=== PATIENT | male | born 1990 | race Caucasian/White ===

== ENCOUNTER 2017-05-26 18:13 | Inpatient (IN) | payer OTHER ==
[~2017-05-26] VITALS: Ht 167.6 cm; Wt 65.8 kg
--- NOTE | 2017-05-26 18:53 | NUR ---
PT TO ED ROOM 01. DIFFUSED R LOWER ABDOMINAL PAIN X 3 DAYS WITH NAUSEA, DENIES VOMITING. SIDE RAILS UP. HOB ELEVATED. SEEN AND EVALUATED BY ED PROVIDER.
[2017-05-26 18:56] LABS: APPEARANCE,URINE Clear (CLEAR); BILIRUBIN,URINE Negative (NEGATIVE); BLOOD, URINE Negative Ery/uL (NEGATIVE); COLOR,URINE Yellow (YELLOW); KETONES,URINE Negative (NEGATIVE); LEUKOCYTE ESTERASE ,URINE Negative (NEGATIVE); NITRITE, URINE Negative (NEGATIVE); PH,URINE 6.5 (5.0-8.0); PROTEIN,URINE Negative (NEGATIVE); UGLUCOSE Negative (NEGATIVE); UROBILINOGEN,URINE 0.2 EU/dL (0.2)
[2017-05-26 19:08] LABS: BASOPHILS % (AUTO) 0.5 % (0.0-2.0); EOSINOPHILS # (AUTO) 0.3 /CMM (0.0-0.7); EOSINOPHILS % (AUTO) 3.7 % (0.0-6.0); HEMATOCRIT 45 % (39-51); HEMOGLOBIN 15.1 g/dL (13.5-17.5); LYMPHOCYTES # (AUTO) 3.8 /CMM (0.8-4.8); LYMPHOCYTES % (AUTO) 42.3 % (20.0-44.0); MEAN CORPUSCULAR HEMOGLOBIN 31 PG (26.0-33.0); MEAN CORPUSCULAR HGB CONC 34 g/dl (31.0-36.0); MEAN CORPUSCULAR VOLUME 91 fL (80-96); MONOCYTES # (AUTO) 0.7 /CMM (0.1-1.30); MONOCYTES % (AUTO) 7.5 % (2.0-12.0); NEUTROPHILS # (AUTO) 4.1 /CMM (1.8-8.9); PLATELET COUNT (AUTO) 250 /CMM (150-450); RDW COEFFICIENT OF VARIATION 12.9 (11.5-15.0); RED BLOOD CELL COUNT(AUTO) 4.93 MIL/uL (4.5-6.0); WHITE BLOOD COUNT (AUTO) 8.9 K/uL (4.3-11.0)
[2017-05-26 19:10] LABS: INR 0.98 (0.87-1.13); PROTHROMBIN TIME 10.2 SECS (9.5-12.7)
[2017-05-26 19:12] LABS: ALBUMIN 4.6 g/dL (3.4-5.0); BILIRUBIN,DIRECT 0.1 mg/dL (0.0-0.2); BILIRUBIN,TOTAL 0.3 mg/dL (0.2-1.0); CALCIUM, SERUM 9.2 mg/dL (8.5-10.1); POTASSIUM 3.8 mmol/L (3.5-5.1); TOTAL PROTEIN, SERUM 8.4 g/dL (6.4-8.2)
[2017-05-26] MEDS ORDERED: IOHEXOL-300 100 ML VIAL IV ONE (19:56)
[2017-05-26] MEDS ORDERED: DIATR MEGLU/DIATRIZOATE SODIUM 30 ML BOTTLE (GASTROGRAPHIN) ONE (19:56)
[2017-05-26] MEDS ORDERED: IV NS 0.9% 250 ML IV ONE (19:56)
[2017-05-26 20:00] VITALS: BP 110/54
--- NOTE | 2017-05-26 20:10 | NUR ---
HL PLACED LAC ON BEHALF OF PRIMARY NURSE HIMANSHU. PLACED ON MONITOR.
--- NOTE | 2017-05-26 21:22 | NUR ---
PANEL PAGED ORDERED.
[2017-05-26] MEDS ORDERED: PIPERACILLIN /TAZOBACTAM 3.375 G in IV D5W 50 ML IV ONE (21:30)
[2017-05-26] MEDS ORDERED: PIPERACILLIN /TAZOBACTAM 3.375 G VIAL IV ONE (21:36)
[2017-05-26] MEDS ORDERED: ZOLPIDEM TARTRATE 5 MG TABLET PO PRN (22:30)
[2017-05-26] MEDS ORDERED: MAG HYDROX/AL HYDROX/SIMETH 30 ML UDC PO PRN (22:30)
[2017-05-26] MEDS ORDERED: MAGNESIUM HYDROXIDE 30 ML UDC PO PRN (22:30)
[2017-05-26] MEDS ORDERED: MORPHINE SULFATE INJ 2 MG/ML DISP.SYRIN IV PRN (22:30)
[2017-05-26] MEDS ORDERED: Z GUARD REMEDY 2 OZ OINT TP PRN (22:30)
[2017-05-26] MEDS ORDERED: ACETAMINOPHEN 325 MG TABLET PO PRN (22:30)
[2017-05-26] MEDS ORDERED: ONDANSETRON HCL/PF 4 MG/2 ML VIAL IVP PRN (22:30)
[2017-05-26 22:35] VITALS: BP 110/54
[2017-05-26] MEDS: IV NS 0.9% 1,000 ML IV PRN (22:58)
[2017-05-27] VITALS (13 sets, daily range): BP systolic 90–115; BP diastolic 50–72
[2017-05-27] MEDS ORDERED: MORPHINE SULFATE INJ 2 MG/ML DISP.SYRIN ONE (00:42)
--- NOTE | 2017-05-27 00:45 | NUR ---
MORPHINE GIVEN FOR C/O SEVERE ABD. PAIN. WILL CONT TO MONITOR
--- NOTE | 2017-05-27 04:00 | NUR ---
PT WAS SEEN AND EXAMINED BY DR. HIMANSHU MEDINA . PER MD PT WILL HAVE SX TOMORROW FOR APPENDECTOMY AND HERNIA REMOVAL. CONSENT TO BE OBTAINED FROM THE PT.
--- NOTE | 2017-05-27 04:41 | NUR ---
RECEIVED A CALL FROM DR. MEDINA W/ A NEW ORDER FOR ZOSYN [id number]. NEW ORDER NOTED.
[2017-05-27] MEDS ORDERED: PIPERACILLIN /TAZOBACTAM 3.375 G VIAL IV ONE (04:44)
[2017-05-27] MEDS: PIPERACILLIN /TAZOBACTAM 3.375 G in IV D5W 50 ML IV SCH ×5 (04:54→23:45)
--- NOTE | 2017-05-27 05:10 | NUR ---
0600 O'CLOCK DOSE FOR THE ZOSYN WAS MARKED NON ADMINISTERED DUE TO MED GIVEN AT 0500.
--- NOTE | 2017-05-27 06:26 | NUR ---
RN NOTE, PT IN BED . BREATHING EVENLY. NO SOB. NAD. SKIN WARM AND DRY. PAIN TOLERATED WELL. NO N/V. NPO FOR SX TODAY. ON ONGOING IVF HYDRATION. NEEDS ATTENDED . . BED LOW LOCKED. CALL LIGHT WITHIN REACH. WILL CONT TO MONITOR AND WILL ENDORSE TO AM SHIFT FOR GRAHAM.
[2017-05-27 07:16] LABS: BASOPHILS % (AUTO) 0.7 % (0.0-2.0); EOSINOPHILS # (AUTO) 0.3 /CMM (0.0-0.7); EOSINOPHILS % (AUTO) 4.2 % (0.0-6.0); HEMATOCRIT 40 % (39-51); HEMOGLOBIN 13.6 g/dL (13.5-17.5); LYMPHOCYTES # (AUTO) 3.5 /CMM (0.8-4.8); LYMPHOCYTES % (AUTO) 46.8 % (20.0-44.0); MEAN CORPUSCULAR HEMOGLOBIN 31 PG (26.0-33.0); MEAN CORPUSCULAR HGB CONC 34 g/dl (31.0-36.0); MEAN CORPUSCULAR VOLUME 91 fL (80-96); MONOCYTES # (AUTO) 0.6 /CMM (0.1-1.30); MONOCYTES % (AUTO) 8.4 % (2.0-12.0); NEUTROPHILS % (AUTO) 39.9 % (43.0-81.0); PLATELET COUNT (AUTO) 210 /CMM (150-450); RED BLOOD CELL COUNT(AUTO) 4.44 MIL/uL (4.5-6.0); WHITE BLOOD COUNT (AUTO) 7.5 K/uL (4.3-11.0)
--- NOTE | 2017-05-27 07:30 | NUR ---
MS RN NOTE PT IN BED.ASLEEP, RESPONDS TO NAME. AO X 4, GIRLFRIEND AT BEDSIDE. ON RA, NOT IN ANY DISTRESS,RESPIRATION UNLABORED, C/O TOLERABLE ABDOMINAL PAIN 11/16. NS AT 100 ML/HR TO LEFT AC G18 SITE CLEAR. SKIN WARM AND DRY. NO N/V. NPO FOR SX TODAY. BED LOW LOCKED. CALL LIGHT WITHIN REACH. WILL CONT TO MONITOR.
[2017-05-27 07:35] LABS: CALCIUM, SERUM 8.5 mg/dL (8.5-10.1); CREATININE 0.9 mg/dL (0.6-1.3); MAGNESIUM 2.1 mg/dL (1.8-2.4); PHOSPHORUS 4.7 mg/dL (2.5-4.9); POTASSIUM 3.6 mmol/L (3.5-5.1)
--- NOTE | 2017-05-27 09:30 | NUR ---
MS RN NOTES NO ORAL MEDS AT THIS TIME.
[2017-05-27] MEDS: IV NS 0.9% 1,000 ML IV PRN ×2 (10:05→22:04)
--- NOTE | 2017-05-27 11:59 | NUR ---
MS RN NOTES STARTED ZOSYN IV. INFUSING WELL.
--- NOTE | 2017-05-27 18:18 | NUR ---
MS RN NOTES PATIENT PICKED UP FOR SCHEDULED APPENDECTOMY. VSS. ZOSYN IV SCHED FOR 1800 GIVEN TO OR NURSE - DEANGELO
[2017-05-27] MEDS ORDERED: MIDAZOLAM HCL 2 MG/2ML VIAL ONE (18:24)
[2017-05-27] MEDS ORDERED: FENTANYL PF 100MCG/2ML AMPUL ONE (18:24)
[2017-05-27] MEDS ORDERED: SUCCINYLCHOLINE CHLORIDE 20 MG/ML VIAL ONE (18:25)
[2017-05-27] MEDS ORDERED: ALBUMIN 25% 50 ML IV ONE (18:53)
[2017-05-27] MEDS ORDERED: BUPIVACAINE 0.5 % PF 150 MG/30 ML VIAL ONE (18:54)
[2017-05-27] MEDS ORDERED: LIDOCAINE 0.5%-EPI 1:200,000 50 ML VIAL ONE (18:55)
[2017-05-27] MEDS ORDERED: ALBUMIN 5% 250 ML IV ONE (19:11)
--- NOTE | 2017-05-27 20:19 | NUR ---
REPORT WAS GIVEN TO ORACIO ZULETA FOR GRAHAM. PATIENT WILL BE TRANSFERRED TO ROOM 328-2 UNDER TELE SERVICES.
[2017-05-27 20:45] LABS: CALCIUM, SERUM 8.2 mg/dL (8.5-10.1); CREATININE 1.1 mg/dL (0.6-1.3)
[2017-05-27 20:47] LABS: BASOPHILS % (AUTO) 0.2 % (0.0-2.0); EOSINOPHILS # (AUTO) 0.1 /CMM (0.0-0.7); HEMATOCRIT 39 % (39-51); HEMOGLOBIN 13.3 g/dL (13.5-17.5); LYMPHOCYTES # (AUTO) 1.2 /CMM (0.8-4.8); LYMPHOCYTES % (AUTO) 11.5 % (20.0-44.0); MEAN CORPUSCULAR HEMOGLOBIN 31 PG (26.0-33.0); MEAN CORPUSCULAR HGB CONC 34 g/dl (31.0-36.0); MEAN CORPUSCULAR VOLUME 91 fL (80-96); MONOCYTES # (AUTO) 0.3 /CMM (0.1-1.30); MONOCYTES % (AUTO) 3.3 % (2.0-12.0); NEUTROPHILS # (AUTO) 8.8 /CMM (1.8-8.9); PLATELET COUNT (AUTO) 202 /CMM (150-450); WHITE BLOOD COUNT (AUTO) 10.5 K/uL (4.3-11.0)
[2017-05-27 20:50] LABS: ALBUMIN 4.1 g/dL (3.4-5.0); BILIRUBIN,TOTAL 0.8 mg/dL (0.2-1.0)
[2017-05-27 20:55] LABS: TROPONIN I 0.428 ng/mL (0.00-0.056)
--- NOTE | 2017-05-27 21:08 | NUR ---
PAGED DR. BLANCHARD TO RELAY RESULTS CH TROPONIN AWAITING CALL BACK
[2017-05-27] MEDS: ENOXAPARIN SODIUM 40 MG/0.4 ML DISP.SYRIN SQ SCH (21:14)
[2017-05-27] MEDS: HYDROCODONE/APAP 5/325MG 1 EACH TABLET PO PRN (22:04)
--- NOTE | 2017-05-27 23:16 | NUR ---
FORENSIC ANALYST ADMITTING OPENING NOTES RECEIVED PT FROM THE O.R SURGERY AT 2024, ATTACH TO TELE MONITOR SR 71'S PT NO COMPLAINS OF PAIN NOW NO ACUTE DISTRESS NOTED. HEAD TO TOE ASSESSMENT IS DONE. 0N 2LPM VIA NC 02 SAT AT 100%, BREATHING EVEN AND UNLABORED, DEEP BREATHING WAS EDUCATED TO THE PT. VERBALIZED UNDERSTANDING. NO SOB NOTED. SAFETY MEASURES IN PLACE, BED LOCKED AND IN LOWEST POSITION, CALL LIGHT IN REACH. WILL CONTINUE TO MONITOR.
--- NOTE | 2017-05-27 23:37 | NUR ---
SPOKE TO DR. JUÁREZ RELAYED RECENT TROPONIN LEVEL NO NEW ORDERS WILL CONTINUE TO MONITOR
--- NOTE | 2017-05-27 23:58 | NUR ---
DR. JUÁREZ NOW ORDERED TROPONIN I SERIES Q6 X 2 NOTED AND CARRIED OUT
[2017-05-28] VITALS (7 sets, daily range): BP systolic 93–114; BP diastolic 43–78
[2017-05-28 03:53] LABS: BASOPHILS % (AUTO) 0.3 % (0.0-2.0); EOSINOPHILS % (AUTO) 0.1 % (0.0-6.0); HEMATOCRIT 38 % (39-51); HEMOGLOBIN 12.7 g/dL (13.5-17.5); LYMPHOCYTES % (AUTO) 14.8 % (20.0-44.0); MEAN CORPUSCULAR HEMOGLOBIN 30 PG (26.0-33.0); MEAN CORPUSCULAR HGB CONC 34 g/dl (31.0-36.0); MEAN CORPUSCULAR VOLUME 91 fL (80-96); MONOCYTES # (AUTO) 0.3 /CMM (0.1-1.30); MONOCYTES % (AUTO) 4.2 % (2.0-12.0); NEUTROPHILS # (AUTO) 5.5 /CMM (1.8-8.9); NEUTROPHILS % (AUTO) 80.6 % (43.0-81.0); PLATELET COUNT (AUTO) 205 /CMM (150-450); RDW COEFFICIENT OF VARIATION 12.6 (11.5-15.0); RED BLOOD CELL COUNT(AUTO) 4.18 MIL/uL (4.5-6.0); WHITE BLOOD COUNT (AUTO) 6.9 K/uL (4.3-11.0)
[2017-05-28] MEDS: PIPERACILLIN /TAZOBACTAM 3.375 G in IV D5W 50 ML IV SCH ×4 (06:00→23:37)
--- NOTE | 2017-05-28 08:00 | NUR ---
MS RN RECEIVED ON BED, AWAKE,ALERT,ORIENTED X4, S/P LAP AP, W/ 3 INCISIONS, OPEN TO AIR, DRY AND NO S/S OF BLEEDING. LUNGS ARE CLEAR, ABDOMEN SOFT,POSITIVE BOWEL SOUNDS, DENIES PAIN AT THIS TIME, WILL MONITOR PATIENT'S CONDITION.
--- NOTE | 2017-05-28 08:40 | NUR ---
MS ZULETA BREAKFAST SERVED, DUE MEDS GIVEN,TOLERATED WELL.
[2017-05-28] MEDS: PANTOPRAZOLE 40 MG VIAL IV SCH (08:47)
--- NOTE | 2017-05-28 09:17 | NUR ---
MS RN WAS SEEN BY CAYETANO GODOY, AWAITING FOR ORDERS.
[2017-05-28] MEDS ORDERED: ANESTHESIA TRAY IN PYXIS 1 EA TRAY MC ONE (10:05)
[2017-05-28] MEDS: HYDROCODONE/APAP 5/325MG 1 EACH TABLET PO PRN ×2 (10:08→21:41)
[2017-05-28] MEDS ORDERED: METOPROLOL TARTRATE INJ 5 MG/5 ML AMPUL IVP PRN (13:00)
[2017-05-28] MEDS ORDERED: METOPROLOL TARTRATE 50 MG TABLET PO ONE (13:00)
[2017-05-28] MEDS ORDERED: IV NS 0.9% 250 ML IV ONE (13:06)
[2017-05-28] MEDS ORDERED: IOHEXOL-350 100 ML VIAL IV ONE (13:06)
--- NOTE | 2017-05-28 13:07 | NUR ---
PT TO HAVE CT ANGIO AFTER BEDSIDE ECHO IS COMPLETED. CONSENT SIGNED AFTER MD EXPLAIN RISKS /BENEFITS. NO MEDICAL COMPLAINTS AT THIS TIME. VSS. EKG COMPLETED AND PRESENTED TO STUDENT RECORDS SPECIALIST.
[2017-05-28] MEDS ORDERED: NITROGLYCERIN 0.4 MG/TAB BOTTLE ONE (13:23)
--- NOTE | 2017-05-28 13:25 | NUR ---
ms rn echo done, went down for ct angio, ekg result showed to trip joya.
--- NOTE | 2017-05-28 13:46 | NUR ---
CT ANGIO IN PROGRESS. NO BETA JANAY INDICATED AT THIS TIME.
--- NOTE | 2017-05-28 13:48 | NUR ---
PRECEDURE COMPLETED. VSS. DENIES ANY MEDICAL COMPLAINTS
--- NOTE | 2017-05-28 14:01 | NUR ---
PT BACK INTO HIS ROOM. REQUESTING FOR HIS LUNCH TRAY. PT/FATHER INFORMED ETA RESULT OF CT
[2017-05-28 16:31] LABS: CALCIUM, SERUM 8.4 mg/dL (8.5-10.1); CREATININE 0.9 mg/dL (0.6-1.3); POTASSIUM 4.4 mmol/L (3.5-5.1)
[2017-05-28 16:32] LABS: ALBUMIN 3.6 g/dL (3.4-5.0); BILIRUBIN,TOTAL 0.8 mg/dL (0.2-1.0); TOTAL PROTEIN, SERUM 6.5 g/dL (6.4-8.2)
[2017-05-28] MEDS: NIFEdipine XL (30MG) 30 MG TAB PO SCH (18:00)
[2017-05-28] MEDS: ASPIRIN 325 MG TABLET PO SCH (18:03)
--- NOTE | 2017-05-28 18:40 | NUR ---
MS RN ON BED, NO DISTRESS NOTED, FAMILY AT BEDSIDE,WILL ENDORSE TO BIBLE WORKER FOR CONTINUITY OF CARE.
--- NOTE | 2017-05-28 20:00 | NUR ---
RN NOTES RESTING COMFORTABLY IN BED WITH FAMILY AT BEDSIDE. NO RESPIRATORY DISTRESS OR SHORTNESS OF BREATH. BREATHING EVEN AND UNLABORED. ALERT AND ORIENTED. VERBALLY ABLE TO COMMUNICATE NEEDS. AMBULATORY. CONTINENT OF BOWEL AND BLADDER FUNCTION. KEPT CLEAN AND DRY. WILL CONTINUE TO MONITOR.
[2017-05-28] MEDS: IV NS 0.9% 1,000 ML IV PRN (21:56)
[2017-05-28] MEDS: ENOXAPARIN SODIUM 40 MG/0.4 ML DISP.SYRIN SQ SCH (22:04)
[2017-05-29] VITALS: BP 105/55
[2017-05-29 04:00] VITALS: BP 104/52
[2017-05-29] MEDS: PIPERACILLIN /TAZOBACTAM 3.375 G in IV D5W 50 ML IV SCH ×2 (05:40→12:39)
--- NOTE | 2017-05-29 07:08 | NUR ---
RN CLOSING NOTES NO DISTRESS NOTED, BREATHING EVEN AND UNLABORED. NO MANIFESTATION OF PAIN OR DISCOMFORT. NO SIGNIFICANT CHANGE OF CONDITION. WILL ENDORSE TO AM SHIFT FOR CONTINUITY OF CARE
--- NOTE | 2017-05-29 07:25 | NUR ---
UTILITY SYSTEM REPAIRER OPENING NOTE RECEIVED SBAR REPORT AT THE BEDSIDE. PATIENT IS ASLEEP, EASILY AWAKEN. A/O X4. PATIENT IS IN BED, BED IS LOCKED, IN LOWEST POSITION, SIDE RIALS UP X 2. NO EVIDENT S/S OF DISTRESS. EXTERNAL HUMAN RESOURCES DESIGNATE READING SB 45. HR RAISES WHEN PATIENT IS AWAKEN. CHEST IS RISING EQUALLY BILATERALLY. SPO2 97% RA. PATIENT WAS EDUCATED TO CALL FOR ASSISTANCE USING THE CALL LIGHT AND WAS ABLE TO VERBALIZE UNDERSTANDING OF THE TEACHING. CALL LIGHT WITHIN REACH. ALL NEEDS ATTENDED TO. WILL CONTINUE TO ASSESS/MONITOR THROUGHOUT THE SHIFT.
[2017-05-29 07:53] LABS: BASOPHILS % (AUTO) 0.4 % (0.0-2.0); EOSINOPHILS # (AUTO) 0.2 /CMM (0.0-0.7); EOSINOPHILS % (AUTO) 3.5 % (0.0-6.0); HEMATOCRIT 39 % (39-51); HEMOGLOBIN 12.8 g/dL (13.5-17.5); LYMPHOCYTES # (AUTO) 2.8 /CMM (0.8-4.8); LYMPHOCYTES % (AUTO) 41.6 % (20.0-44.0); MEAN CORPUSCULAR HEMOGLOBIN 30 PG (26.0-33.0); MEAN CORPUSCULAR HGB CONC 33 g/dl (31.0-36.0); MEAN CORPUSCULAR VOLUME 91 fL (80-96); MONOCYTES # (AUTO) 0.6 /CMM (0.1-1.30); MONOCYTES % (AUTO) 9.7 % (2.0-12.0); NEUTROPHILS % (AUTO) 44.8 % (43.0-81.0); PLATELET COUNT (AUTO) 207 /CMM (150-450); RDW COEFFICIENT OF VARIATION 12.8 (11.5-15.0); RED BLOOD CELL COUNT(AUTO) 4.23 MIL/uL (4.5-6.0); WHITE BLOOD COUNT (AUTO) 6.7 K/uL (4.3-11.0)
[2017-05-29 08:00] VITALS: BP_SYST 100; BP_SYST 107; BP_DIAS 60; BP_DIAS 64
[2017-05-29 08:06] LABS: ALBUMIN 3.6 g/dL (3.4-5.0); BILIRUBIN,TOTAL 0.7 mg/dL (0.2-1.0); CALCIUM, SERUM 8.2 mg/dL (8.5-10.1); MAGNESIUM 1.6 mg/dL (1.8-2.4); PHOSPHORUS 3.2 mg/dL (2.5-4.9); POTASSIUM 3.6 mmol/L (3.5-5.1); TOTAL PROTEIN, SERUM 6.5 g/dL (6.4-8.2)
[2017-05-29 08:08] LABS: TROPONIN I 6.405 ng/mL (0.00-0.056)
--- NOTE | 2017-05-29 08:09 | NUR ---
UPHOLSTERY INSTRUCTOR NOTE RECEIVED A PHONE CALL FROM LAB REPORTING TROPONIN LEVEL OF 6.405 THAT IS TRENDING DOWN BUT IS STILL CRITICAL DR. DUBOIS ON THE FLOOR. CRITICAL LAB VALUE REPORTED TO DR DUBOIS. NO NEW ORDERS RECEIVED.
--- NOTE | 2017-05-29 08:20 | NUR ---
RN CRITICAL CARE NOTE DR DUBOIS AT THE BEDSIDE DISCUSSING PATIENT'S CONDITION WITH THE PATIENT'S FATHER.
[2017-05-29 09:00] VITALS: BP 100/60
[2017-05-29] MEDS: NIFEdipine XL (30MG) 30 MG TAB PO SCH (09:00)
[2017-05-29] MEDS: PANTOPRAZOLE 40 MG VIAL IV SCH (09:49)
[2017-05-29] MEDS: ASPIRIN 325 MG TABLET PO SCH (09:49)
--- NOTE | 2017-05-29 10:54 | NUR ---
MS RN NOTE DISCHARGE ORDER RECEIVED. IN PROCESS OF PREPARING THE PATIENT FOR D/C. PREPARING D/C INSTRUCTIONS AND EDUCATION MATERIALS TO DISCUSS WITH PT/FAMILY
[2017-05-29] MEDS ORDERED: ASPI81TA2 PO (11:02)
[2017-05-29] MEDS ORDERED: NIFE30TA89 PO (11:02)
[2017-05-29] MEDS ORDERED: HYDR-3326 PO (11:02)
[2017-05-29] MEDS ORDERED: DOCU-25 PO (11:02)
[2017-05-29] MEDS ORDERED: MAGNESIUM OXIDE 400 MG TABLET PO ONE (12:30)
--- NOTE | 2017-05-29 14:53 | NUR ---
MS CHILD CARE AIDE NOTE DISCHARGE INFORMATION/EDUCATION PROVIDED TO THE PATIENT/FAMILY VIA TEACH BACK METHOD. DISCHARGE INSTRUCTIONS/ORDERS/FORM GIVEN TO THE PATIENT. ALL BELONGINGS ARE ACCOUNTED FOR. IV CATHETER REMOVED WITH THE INTACT TIP. OCCLUSIVE DRESSING APPLIED. PATIENT TOLERATED THE PROCEDURE WELL. PATIENT COMPLAINED OF MILD PAIN AT THE OPERATED SITE RATING 3-4/10 ON A PAIN SCALE. TYLENOL 650 MG WAS ADMINISTERED TO PATIENT PRIOR TO LEAVING THE UNIT. PATIENT LEFT THE UNIT IN STABLE CONDITION ACCOMPANIED BY RN VA WHEELCHAIR. PATIENT SET IN THE FATHER'S CAR IN RN'S PRESENCE. VS WNL. PATIENT LEFT THE HOSPITAL IN STABLE CONDITION.
== END 2017-05-29 14:30 | disposition home or self-care (01) | DRG 341 ==
LOC: ER 18:22 → MEDSG2 22:17 → MED 05-27 19:44 → TELE 05-27 21:58 → MED 05-29 08:40
PROVIDERS: ADMIT Internal Medicine; ATTEND Internal Medicine
DX: K35.80 Unspecified acute appendicitis (principal); I21.4 Non-ST elevation (NSTEMI) myocardial infarction; I10 Essential (primary) hypertension; K43.9 Ventral hernia without obstruction or gangrene
CPT/HCPCS: 36415; 71010-TC; 75574; 80048-TC; 80053-TC; 80076-TC; 80305; 81000-TC; 83690-TC; 83735-TC; 84100-TC; 84484-TC; 85025-TC; 85730-TC; 87040-TC; 87081-TC; 88304-TC; 88305-TC; 93307-TC; A4606; C9113; J0171; J0330; J1100; J1650; J1885; J2250; J2270; J2405; J2543; J2704; J2710; J3010; J3490; J7030; J7050; J7060; P9045; P9047; Q9963; Q9967; Z7610